=== PATIENT | male | born 1970 | race Caucasian/White ===

== ENCOUNTER 2016-12-31 09:48 | Emergency (ER) | payer OTHER ==
[~2016-12-31] VITALS: Ht 167.6 cm; Wt 127.0 kg
[~2016-12-31 09:48] MED LIST: PENI500T PO; PRED20 PO; TRAM50 PO; VENTAER INH; Z.0.NO CURRENT MEDS; ZITH500T PO
[2016-12-31 09:56] VITALS: BP 173/94; PULSE 94; RESP 18; TEMP 99.2; O2SAT 98
[2016-12-31] MEDS ORDERED: ONDANSETRON HCL 4 MG/2 ML VIAL IV PUSH ONE (10:45)
[2016-12-31] MEDS ORDERED: KETOROLAC TROMETHAMINE 30 MG/ML (IVP) VIAL IVP ONE (10:45)
[2016-12-31] MEDS ORDERED: CLINDAMYCIN INJ 600 MG in SODIUM CHLORIDE 0.9% INJ 100 ML IV ONE (10:45)
[2016-12-31] MEDS ORDERED: SODIUM CHLOR 0.9% 1000 ML INJ 1,000 ML IV ONE (10:45)
[2016-12-31] MEDS ORDERED: MORPHINE SULFATE 4 MG/ML INJ IV PUSH ONE (10:45)
--- NOTE | 2016-12-31 10:46 | PD ---
HPI Chief Complaint: Skin Problem Time Seen by Provider: 10:20 Travel History International Travel<30 days: No Contact w/Intl Traveler<30days: No Traveled to known affect area: No History of Present Illness HPI The patient is a 46-year-old male who presents to the emergency department for a 1-2 day history of left-sided leg pain of the medial aspect the left thigh. The patient states yesterday he developed a small red area on the medial aspect left thigh which was painful. Today the area has extended, is erythematous, slightly hard to palpation, and exquisitely tender to palpation. The patient went to work, however, came to the emergency department for increasing pain. Pain is localized over the erythematous area, he denies any direct trauma to the affected area. He does note subjective sweats, but denies any actual fever. He denies any pain to the posterior left calf or history of DVT. He denies any history of IV drug abuse. He denies any history of recurrent abscess or cellulitis. Symptoms are moderate, there are no current alleviating or exacerbating factors. [facility] Past Medical History Medical History: Denies Significant Hx Diminished Hearing: No Past Surgical History Narrative Surgical Noncontributory Social History Alcohol Use: Yes ([employer] [employer] DAILY) Tobacco Use: Yes (2 ppd) Substance Use: No Allergies-Medications (Allergen,Severity, Reaction): Coded Allergies: No Known Allergies (Verified , 12/31/16) Reported Meds & Prescriptions Reported Meds & Active Scripts Active Active Prescriptions or Reported Medications Unobtainable Review of Systems Except as stated in HPI: all other systems reviewed are Neg General / Constitutional: No: Fever Musculoskeletal: Positive: Pain Skin: Positive Other (as noted in the history of present illness) Neurologic: No: Paresthesia, Sensory Disturbance Physical Exam Narrative GENERAL: Awake, alert, very pleasant 46-year-old male who appears his stated age and is in no acute respiratory distress. SKIN: Focused skin assessment warm/dry. Inspection of the skin reveals an area that is 10 cm x 14 cm in the medial left thigh, erythematous, slightly indurated and tender to palpation. Multiple tattoos noted. HEAD: Atraumatic. Normocephalic. EYES: Pupils equal and round. No scleral icterus. No injection or drainage. ENT: No nasal bleeding or discharge. Mucous membranes pink and moist. NECK: Trachea midline. No JVD. MUSCULOSKELETAL: No obvious deformities. No clubbing. No cyanosis. No edema. 10 cm x 14 cm erythematous area with induration and tenderness of the medial left distal thigh. Patient is able flex and extend the knee without difficulty. No tenderness of the left calf. Negative Homans sign. No proximal lymphangitis or lymphadenitis noted. No significant inguinal lymphadenopathy. NEUROLOGICAL: Awake and alert. No obvious cranial nerve deficits. Motor grossly within normal limits. Normal speech. PSYCHIATRIC: Appropriate mood and affect; insight and judgment normal. Data Data Last Documented VS Vital Signs Date Time Temp Pulse Resp B/P (MAP) Pulse Ox O2 Delivery O2 Flow Rate FiO2 12/31/16 11:10 90 18 140/70 (93) 95 Room Air 12/31/16 09:56 99.2 Orders Orders Basic Metabolic Panel (Bmp) (12/31/16 10:35) Complete Blood Count With Diff (12/31/16 10:35) Blood Culture (12/31/16 10:35) Iv Access Insert/Monitor (12/31/16 10:35) Ketorolac Inj (Toradol Inj) (12/31/16 10:45) Clindamycin Inj (Cleocin Inj) (12/31/16 10:45) Morphine Inj (Morphine Inj) (12/31/16 10:45) Ondansetron Inj (Zofran Inj) (12/31/16 10:45) Sodium Chlor 0.9% 1000 Ml Inj (Ns 1000 M (12/31/16 10:45) Labs Laboratory Tests Test 12/31/16 10:55 White Blood Count 13.4 TH/MM3 Red Blood Count 4.50 MIL/MM3 Hemoglobin 14.9 GM/DL Hematocrit 43.3 % Mean Corpuscular Volume 96.1 FL Mean Corpuscular Hemoglobin 33.1 PG Mean Corpuscular Hemoglobin Concent 34.4 % Red Cell Distribution Width 13.3 % Platelet Count 201 TH/MM3 Mean Platelet Volume 8.5 FL Neutrophils (%) (Auto) 78.8 % Lymphocytes (%) (Auto) 11.7 % Monocytes (%) (Auto) 6.8 % Eosinophils (%) (Auto) 0.2 % Basophils (%) (Auto) 2.5 % Neutrophils # (Auto) 10.6 TH/MM3 Lymphocytes # (Auto) 1.6 TH/MM3 Monocytes # (Auto) 0.9 TH/MM3 Eosinophils # (Auto) 0.0 TH/MM3 Basophils # (Auto) 0.3 TH/MM3 CBC Comment DIFF FINAL Differential Comment Blood Urea Nitrogen 11 MG/DL Creatinine 0.94 MG/DL Random Glucose 241 MG/DL Calcium Level 8.4 MG/DL Sodium Level 135 MEQ/L Potassium Level 4.1 MEQ/L Chloride Level 101 MEQ/L Carbon Dioxide Level 28.4 MEQ/L Anion Gap 6 MEQ/L Estimat Glomerular Filtration Rate 86 ML/MIN [facility] Medical Decision Making Medical Screen Exam Complete: Yes Emergency Medical Condition: Yes Medical Record Reviewed: Yes Interpretation(s) Laboratory Tests Test 12/31/16 10:55 White Blood Count 13.4 TH/MM3 Red Blood Count 4.50 MIL/MM3 Hemoglobin 14.9 GM/DL Hematocrit 43.3 % Mean Corpuscular Volume 96.1 FL Mean Corpuscular Hemoglobin 33.1 PG Mean Corpuscular Hemoglobin Concent 34.4 % Red Cell Distribution Width 13.3 % Platelet Count 201 TH/MM3 Mean Platelet Volume 8.5 FL Neutrophils (%) (Auto) 78.8 % Lymphocytes (%) (Auto) 11.7 % Monocytes (%) (Auto) 6.8 % Eosinophils (%) (Auto) 0.2 % Basophils (%) (Auto) 2.5 % Neutrophils # (Auto) 10.6 TH/MM3 Lymphocytes # (Auto) 1.6 TH/MM3 Monocytes # (Auto) 0.9 TH/MM3 Eosinophils # (Auto) 0.0 TH/MM3 Basophils # (Auto) 0.3 TH/MM3 CBC Comment DIFF FINAL Differential Comment Blood Urea Nitrogen 11 MG/DL Creatinine 0.94 MG/DL Random Glucose 241 MG/DL Calcium Level 8.4 MG/DL Sodium Level 135 MEQ/L Potassium Level 4.1 MEQ/L Chloride Level 101 MEQ/L Carbon Dioxide Level 28.4 MEQ/L Anion Gap 6 MEQ/L Estimat Glomerular Filtration Rate 86 ML/MIN Differential Diagnosis Differential diagnosis includes cellulitis, abscess, thrombophlebitis, DVT, septic joint, necrotizing fasciitis. Narrative Course IV was established, labs are drawn and sent, and the patient was placed on cardiac telemetry monitoring and continuous pulse oximetry monitoring. Bedside ultrasound was performed, there are cellulitic changes but no obvious abscess on ultrasound. The patient had blood cultures sent to lab. A surgical marking pen was used to surround the erythematous area for reevaluation 48 hours. The patient received morphine, Toradol, Zofran, IV fluids, and clindamycin milligrams intravenously. The patient's white count is mildly elevated at 13.4. The patient's glucose was elevated at 261, patient is advised he will need to follow-up with a primary physician on an outpatient basis for reevaluation of his blood glucoses he may have early onset diabetes. The patient will be discharged home on Bactrim, ibuprofen, and pain medications. He is advised to return in 48 hours for reevaluation of the wound. Procedures Procedure Narrative A bedside ultrasound was performed using a linear probe to evaluate for abscess. There were cellulitic changes, no obvious abscess. The patient tolerated the procedure without complications. Diagnosis Primary Impression: Cellulitis of left leg Patient Instructions: General Instructions Additional Instructions: Reevaluation of wound in 48 hours. Medications as directed. Follow-up with your primary physician. Return if symptoms worsen or progress. Med/Other Pt SpecificInfo: Prescription(s) given Scripts Ibuprofen (Ibuprofen) 600 Mg Tab 600 MG PO Q6H Y for Pain/Inflammation, #20 TAB 0 Refills Prov: Fermín Malloy MD 12/31/16 Hydrocodone-Acetaminophen ([place]urst) 5-325 mg Tab 1 TAB PO Q6H Y for PAIN, #12 TAB 0 Refills Prov: Fermín Malloy MD 12/31/16 Sulfamethoxazole-Trimethoprim (Bactrim DS) 800-160 Mg Tab 1 TAB PO BID for Infection, #20 TAB 0 Refills Prov: Fermín Malloy MD 12/31/16 Disposition: 01 DISCHARGE HOME Condition: Stable Fermín Malloy MD Dec 31, 2016 10:46
[2016-12-31 10:59] LABS: AUTOMATED NEUTROPHIL # 10.6 TH/MM3 (1.8-7.7); BASOPHIL # 0.3 TH/MM3 (0-0.2); BASOPHIL % 2.5 % (0.0-2.0); EOSINOPHIL % 0.2 % (0.0-4.0); HEMATOCRIT 43.3 % (39.0-51.0); LYMPH % 11.7 % (9.0-44.0); LYMPHOCYTE # 1.6 TH/MM3 (1.0-4.8); MEAN CELL VOLUME 96.1 FL (80.0-100.0); MEAN CORPUSCULAR HEMOGLOBIN 33.1 PG (27.0-34.0); MEAN CORPUSCULAR HGB CONC 34.4 % (32.0-36.0); MONO % 6.8 % (0.0-8.0); NEUT % 78.8 % (16.0-70.0); PLATELET COUNT 201 TH/MM3 (150-450); RED CELL DISTRIBUTION WIDTH 13.3 % (11.6-17.2); WHITE BLOOD COUNT 13.4 TH/MM3 (4.0-11.0)
[2016-12-31 11:00] LABS: HEMO FLAGS DIFF FINAL
[2016-12-31 11:07] LABS: POTASSIUM 4.1 MEQ/L (3.5-5.1)
[2016-12-31 11:10] VITALS: BP 140/70; PULSE 90; RESP 18; O2SAT 95
[2016-12-31 11:10] LABS: BICARBONATE 28.4 MEQ/L (21.0-32.0)
[2016-12-31] MEDS ORDERED: IBUP-232 PO (11:25)
[2016-12-31] MEDS ORDERED: NORC5TAB PO (11:25)
[2016-12-31] MEDS ORDERED: BACT800T5 PO (11:25)
== END 2016-12-31 12:49 | disposition home or self-care (01) ==
LOC: PHED 09:48
DX: L03.116 Cellulitis of left lower limb (principal); F17.210 Nicotine dependence, cigarettes, uncomplicated
CPT/HCPCS: 80048; 85025; 87040; 96365; 96375; 99285; J1885; J2270; J2405; J7030